=== PATIENT | female | born 1960 | race Caucasian/White ===

== ENCOUNTER 2019-06-18 08:56 | Emergency (ER) | payer OTHER ==
[~2019-06-18] VITALS: Ht 162.6 cm; Wt 95.3 kg
[~2019-06-18 08:56] MED LIST: METO25TA4 PO
[2019-06-18 09:00] VITALS: BP 147/75
--- NOTE | 2019-06-18 09:29 | PHYS DOC ---
Past Medical History Past Medical History: Other Additional Past Medical Histor: SINUS TACHYCARDIA, CENTRAL TREMORS (SOHAM DELGADO APRN) Past Surgical History: Hysterectomy, Other Additional Past Surgical Histo: DENTAL SURGERY (SOHAM DELGADO APRN) Alcohol Use: None Drug Use: None (SOHAM DELGADO APRN) Attending Signature I have participated in the care of this patient and I have reviewed and agree with all pertinent clinical information above including history, exam, and recommendations. (NIKHIL PLUMMER MD) Adult General Chief Complaint Chief Complaint: FOOT INJURY PAIN HPI HPI Patient is a 59 year old female patient with history of tachycardia who presents to the ED today complaining of right ankle pain rated at 7 out of 10 described as throbbing and vomiting that began sometime last night. She states she accidentally slept in a recliner, she states she woke up in a rash and rolled her right ankle. Patient describes the pain as throbbing and intermittent. She states the pain is worse on weight-bearing and radiates to the foot. (SOHAM DELGADO APRN) Review of Systems Review of Systems Constitutional: Denies fever or chills [] Musculoskeletal: Reports right ankle pain Integument: Denies rash or skin lesions [] Neurologic: Denies headache, focal weakness or sensory changes [] All other systems were reviewed and found to be within normal limits, except as documented in this note. (SOHAM DELGADO APRN) Allergies Allergies Allergies Coded Allergies Type Severity Reaction Last Updated Verified Penicillins Allergy Intermediate Anaphylaxis 10/11/13 Yes cefaclor Allergy Mild RASH 02/14/14 Yes (NIKHIL PLUMMER MD) Physical Exam Physical Exam Constitutional: Well developed, well nourished, no acute distress, non-toxic denise earance. [] Skin: Warm, dry, no erythema, no rash. [] Back: No tenderness, no CVA tenderness. [] Extremities: Right ankle with no obvious deformity, mild soft tissue swelling noted on the right lateral ankle. Tenderness on palpation of the right lateral ankle. No navicular bone tenderness, no tenderness of the base of the fifth metatarsal some tenderness noted on top of the right second through fourth metatarsals. Limited range of motion to the right ankle pain.+2 right pedal pulse. Full range of motion to the right toes. Neurologic: Alert and oriented X 3, normal motor function, normal sensory function, no focal deficits noted. [] Psychologic: Affect normal, judgement normal, mood normal. [] (SOHAM DELGADO APRN) Current Patient Data Vital Signs Vital Signs Date Time Temp Pulse Resp B/P (MAP) Pulse Ox O2 Delivery O2 Flow Rate FiO2 06/18/19 09:00 97.4 79 16 147/75 (99) 97 Room Air 97.4 (NIKHIL PLUMMER MD) EKG EKG [] (SOHAM DELGADO APRN) Radiology/Procedures Radiology/Procedures []PROCEDURE: ANKLE RIGHT 3V ANKLE RIGHT 3V, FOOT RIGHT 3V History: Rolled right ankle, lateral pain and swelling Comparison: None. Findings: Right foot: 3 views the right foot are submitted. Better seen on the left ankle radiographs, there is a small avulsed bone fragment at the lateral margin of the calcaneus. There are dorsal and plantar calcaneal enthesophytes. Right ankle: 3 views of the right ankle are submitted. There is soft tissue swelling. There is a small avulsed bone fragment at the lateral margin of the calcaneus. Impression: 1. There is a small avulsed bone fragment at the lateral margin of the calcaneus. Electronically signed by: Yao Manley MD (06/18/2019 9:49 AM) [facility] DICTATED and SIGNED BY: YAO MANLEY MD DATE: 06/18/19 0949 (SOHAM DELGADO APRN) Course & Med Decision Making Course & Med Decision Making Pertinent Labs and Imaging studies reviewed. (See chart for details) This is a 59-year-old female patient presenting to the ED today with right ankle pain that began last night after rolling her ankle, right foot and right ankle x-rays interpreted by radiologist were noted for a small avulsed bone fragment at the lateral margin of the calcaneus-patient denies any back pain. Patient was placed in right posterior leg splint-by the help desk technician, neurovascular exam is intact. Ice elevation encouraged. Follow-up with orthopedic doctor this week. (SOHAM DELGADO APRN) Dragon Disclaimer Dragon Disclaimer This electronic medical record was generated, in whole or in part, using a voice recognition dictation system. (SOHAM DELGADO APRN) Departure Departure Impression: Primary Impression: Avulsion fracture of calcaneus Disposition: 01 HOME, SELF-CARE Condition: STABLE Referrals: KAREL DOWNS MD (PCP) VIPUL OLIVEIRA MD follow up in the course of this week Patient Instructions: Calcaneal Fracture Additional Instructions: You were evaluated in the emergency room and noted to have calcaneus fracture. Try to ice and elevate the affected extremity, contact the provided orthopedic doctor tomorrow and set up a follow-up appointment. Problem Qualifiers Primary Impression: Avulsion fracture of calcaneus Encounter type: initial encounter Calcaneus location: tuberosity Fracture type: closed Fracture alignment: nondisplaced Laterality: right Quali fied Codes: S92.034A - Nondisplaced avulsion fracture of tuberosity of right calcaneus, initial encounter for closed fracture SOHAM DELGADO APRN Jun 18, 2019 09:29 NIKHIL PLUMMER MD Jun 18, 2019 17:16
--- NOTE | 2019-06-18 09:53 | RAD ---
ANKLE RIGHT 3V, FOOT RIGHT 3V History: Rolled right ankle, lateral pain and swelling Comparison: None. Findings: Right foot: 3 views the right foot are submitted. Better seen on the left ankle radiographs, there is a small avulsed bone fragment at the lateral margin of the calcaneus. There are dorsal and plantar calcaneal enthesophytes. Right ankle: 3 views of the right ankle are submitted. There is soft tissue swelling. There is a small avulsed bone fragment at the lateral margin of the calcaneus. Impression: 1. There is a small avulsed bone fragment at the lateral margin of the calcaneus. Electronically signed by: Rolando Zurita MD (06/18/2019 9:49 AM) [facility]
== END 2019-06-18 10:20 | disposition home or self-care (01) ==
LOC: ER 08:56
DX: S92.034A Nondisplaced avulsion fracture of tuberosity of right calcaneus, initial encounter for closed fracture (principal); R00.0 Tachycardia, unspecified; R11.10 Vomiting, unspecified; Z90.710 Acquired absence of both cervix and uterus; Z88.0 Allergy status to penicillin; Z88.1 Allergy status to other antibiotic agents; X50.1XXA Overexertion from prolonged static or awkward postures, initial encounter; Y93.89 Activity, other specified; Y92.89 Other specified places as the place of occurrence of the external cause; Y99.8 Other external cause status
CPT/HCPCS: 29515; 73610; 73630; 99284

== ENCOUNTER 2019-07-06 16:57 | Emergency (ER) | payer OTHER ==
[~2019-07-06] VITALS: Ht 162.6 cm; Wt 95.3 kg
[2019-07-06 17:17] VITALS: BP 181/86
--- NOTE | 2019-07-06 17:40 | PHYS DOC ---
Text Text Left elbow/wrist studies reviewed. No obvious displaced fracture on preliminary ED evaluation. Recommendations are for supportive care with PCP follow-up. Return precautions reviewed. General Chief Complaint: WRIST PAIN Stated Complaint: LEFT WRIST INJURY Time Seen by MD: 17:12 Source: patient Exam Limitations: no limitations History of Present Illness Initial Comments Additional is a 59-year-old right-handed female who presents with left elbow/forearm injury. Patient states she lost balance this morning and fell forward striking her left arm on a metal bar as she fell. Patient reports proximal and distal forearm pain and pain with range of motion. Injury occurred several hours prior to ED arrival. No other injury or pain complaints. Onset: this morning Pain/Injury Location: left forearm, left wrist Method of Injury: direct blow, fell Modifying Factors: improves with movement Allergies: Coded Allergies: Penicillins (Verified Allergy, Intermediate, Anaphylaxis, 10/11/13) cefaclor (Verified Allergy, Mild, RASH, 02/14/14) Past Medical History Medical History: no pertinent history Review of Systems Constitutional: no symptoms reported EENTM: no symptoms reported Cardiovascular: no symptoms reported Gastrointestinal: no symptoms reported Genitourinary: no symptoms reported Musculoskeletal: see HPI Skin: no symptoms reported Psychiatric/Neurological: no symptoms reported All Other Systems: Reviewed and Negative Physical Exam General Appearance: moderate distress HEENT: PERRL/EOMI, normal ENT inspection Neck: full range of motion Back: normal inspection Shoulder: normal inspection Elbow/Forearm: pain, soft tissue tenderness, swelling (proximal and distal soft tissue tenderness to palpation no gross deformity, bruising or abrasions.) Wrist: soft tissue tenderness (proximal wrist soft tissue tenderness to palpation, no gross deformities or bony tenderness.) Hand: normal inspection Neurologic/Tendon: normal sensation, normal motor functions, normal tendon functions Psychiatric: alert, oriented x 3 Skin: normal color JENNIFER COLLINS DO Jul 06, 2019 17:40
[2019-07-06] MEDS ORDERED: TRAM50TA PO (17:44)
--- NOTE | 2019-07-06 17:49 | RAD ---
Exam: Left wrist 3 views. Left elbow 3 views INDICATION: Fall TECHNIQUE: Frontal, lateral and oblique views of the left wrist and left elbow Comparisons: None FINDINGS: Left wrist: Bone mineralization is normal. No acute or healed fractures. Soft tissues are unremarkable. Joint spaces are well-maintained. Left elbow: Bone mineralization is normal. No acute or healed fractures. Soft tissues are unremarkable. Joint spaces are well-maintained. IMPRESSION: 1. No acute osseous abnormality of the left wrist. If the patient is having snuffbox tenderness recommend splinting with repeat imaging to rule out an occult scaphoid injury. 2. No acute osseous abnormality of the left elbow. Electronically signed by: Genia Rivera MD (07/06/2019 5:46 PM) [facility]
== END 2019-07-06 17:54 | disposition home or self-care (01) ==
LOC: ER 16:57
DX: M25.532 Pain in left wrist (principal); M79.632 Pain in left forearm; G89.11 Acute pain due to trauma; Z88.0 Allergy status to penicillin; Z88.8 Allergy status to other drugs, medicaments and biological substances; W18.09XA Striking against other object with subsequent fall, initial encounter; Y93.89 Activity, other specified; Y92.89 Other specified places as the place of occurrence of the external cause; Y99.8 Other external cause status
CPT/HCPCS: 73080; 73110; 99284

== ENCOUNTER 2019-12-23 18:29 | Emergency (ER) | payer OTHER ==
[~2019-12-23] VITALS: Ht 165.1 cm; Wt 91.0 kg
[~2019-12-23 18:29] MED LIST changes: +TRAM50TA PO
--- NOTE | 2019-12-23 19:09 | EKG ---
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
[2019-12-23 19:10] LABS: BASO # 0.1 x10^3/uL (0.0-0.2); BASO % 1 % (0-3); EOS % 0 % (0-3); HEMATOCRIT 42.4 % (36.0-47.0); HEMOGLOBIN 14.3 g/dL (12.0-15.5); LYMPH % 24 % (24-48); MEAN CORPUSCULAR HEMOGLOBIN 29 pg (25-35); MEAN CORPUSCULAR HGB CONC 34 g/dL (31-37); MEAN CORPUSCULAR VOLUME 86 fL (79-100); MONO # 0.6 x10^3/uL (0.0-1.1); MONO % 8 % (0-9); NEUT # 5.5 x10^3/uL (1.8-7.7); NEUT % 67 % (31-73); PLATELET COUNT 258 x10^3/uL (140-400); RED BLOOD COUNT 4.94 x10^6/uL (3.50-5.40); RED CELL DISTRIBUTION WIDTH 13.3 % (11.5-14.5); WHITE BLOOD COUNT 8.2 x10^3/uL (4.0-11.0)
[2019-12-23] MEDS ORDERED: diazePAM 5 MG TABLET PO ONE (19:15)
[2019-12-23 19:19] LABS: CALCIUM 9.4 mg/dL (8.5-10.1); CREATININE 0.9 mg/dL (0.6-1.0); GFR 63.7; POTASSIUM 3.9 mmol/L (3.5-5.1)
--- NOTE | 2019-12-23 19:19 | PHYS DOC ---
Past Medical History Past Medical History: Anxiety, Other Additional Past Medical Histor: SINUS TACHYCARDIA, CENTRAL TREMORS Past Surgical History: Hysterectomy, Other Additional Past Surgical Histo: DENTAL SURGERY Smoking Status: Never Smoker Alcohol Use: None Drug Use: None General Adult EDM: Chief Complaint: ANXIETY/PANIC ATTACK HPI: HPI: Patient is a 59 year old female who reports to the emergency department with complaints of anxiety and a rapid heart rate for the last week. Patient states she has been waking up from her sleep feeling like her heart is racing. After 5 to 10 minutes her heart rate will go back down to normal. She currently denies any chest pain, diaphoresis, shortness of breath, cough, wheezing, fever, headache, nausea, vomiting, diarrhea, abdominal pain, or myalgias. The patient denies any known exposure to anyone with COVID-19. She states she has been extremely worried about the virus. Patient states she has not been outside of her home in the last 30 days, only her has been bringing things back in the home. Patient states that she has been diligently cleaning anything that her brings into the home and has been maintaining social distance from her . She currently denies any pain. Review of Systems: Review of Systems: Constitutional: Denies fever or chills. [] Eyes: Denies change in visual acuity. [] HENT: Denies nasal congestion or sore throat. [] Respiratory: Denies cough or shortness of breath. [] Cardiovascular: Denies chest pain or edema; see HPI. [] GI: Denies abdominal pain, nausea, vomiting, or diarrhea. [] : Denies dysuria. [] Musculoskeletal: Denies back pain or joint pain. [] Integument: Denies rash. [] Neurologic: Denies headache, focal weakness or sensory changes. [] Endocrine: Denies polyuria or polydipsia. [] Lymphatic: Denies swollen glands. [] Psychiatric: Denies depression; see HPI Heart Score: HEART Score for Chest Pain: HEART Score for Chest Pain Response (Comments) Value History Slighlty/Non-Suspicious 0 ECG Normal 0 Age >45 - < 65 1 Risk Factors 1 or 2 Risk Factors 1 Troponin < Normal Limit 0 Total 2 Risk Factors: Risk Factors: DM, Current or recent (<one month) smoker, HTN, HLP, family history of CAD, obesity. Risk Scores: Score 0 - 3: 2.5% MACE over next 6 weeks - Discharge Home Score 4 - 6: 20.3% MACE over next 6 weeks - Admit for Clinical Observation Score 7 - 10: 72.7% MACE over next 6 weeks - Early Invasive Strategies Current Medications: Current Medications Medications (Trade) Dose Ordered Sig/[place] Start Time Stop Time Status Last Admin Dose Admin Diazepam (Valium) 5 mg 1X ONCE 12/23/19 19:15 12/23/19 19:16 Allergies: Allergies: Allergies Coded Allergies Type Severity Reaction Last Updated Verified Penicillins Allergy Intermediate Anaphylaxis 10/11/13 Yes cefaclor Allergy Intermediate RASH 12/23/19 Yes Physical Exam: PE: Constitutional: Well developed, well nourished, moderate distress, non-toxic appearance. [] HENT: Normocephalic, atraumatic, bilateral external ears normal, nose normal. [] Eyes: PERRLA, EOMI, conjunctiva normal, no discharge. [] Neck: Normal range of motion, no stridor. [] Cardiovascular:Heart rate irregular rhythm, no murmur [] Lungs & Thorax: Bilateral breath sounds clear to auscultation, Respirations even and unlabored, no retractions, no respiratory distress [] Abdomen: soft, no tenderness, no masses, no pulsatile masses. [] Skin: Warm, dry, no erythema, no rash. [] Back: No tenderness Extremities: No cyanosis, no clubbing, ROM intact, no edema. [] Neurologic: Alert and oriented X 3, no focal deficits noted. [] Psychologic: Affect worried, judgement normal, mood anxious Current Patient Data: Vital Signs: Vital Signs Date Time Temp Pulse Resp B/P (MAP) Pulse Ox O2 Delivery O2 Flow Rate FiO2 12/23/19 18:38 97.8 96 14 165/72 (103) 100 Room Air 97.8 EKG: EK-sinus rhythm with left atrial abnormality, rate of 98, no STEMI, read by Dr. Kelley [] Radiology/Procedures: Radiology/Procedures: PROCEDURE: CHEST AP ONLY Exam: Chest one view INDICATION: Rapid heart rate TECHNIQUE: Frontal view of the chest Comparisons: None FINDINGS: The cardiomediastinal silhouette and pulmonary vessels are within normal limits. The lung and pleural spaces are clear. IMPRESSION: No acute cardiopulmonary process.[] Course & Med Decision Making: Course & Med Decision Making Pertinent Labs and Imaging studies reviewed. (See chart for details) Patient is a 59-year-old female who presented to the emergency room with complaints of having palpitations and rapid heart rate with anxiety for the last week. Her EKG revealed no acute findings. CBC was unremarkable, CMP was also unremarkable. PT, INR were within normal limits, d-dimer was not elevated. Low suspicion for PE. Cardiac enzymes were within normal limits, patient's heart score is a 2, low suspicion for ACS. I offered to give the patient 5 mg of p.o. Valium to help with anxiety. The patient declined this medication. Her vital signs are stable throughout the visit, the patient reported feeling better. I encouraged the patient to continue to social distance and to frequently wash her hands and avoid touching her face in order to avoid transmission of COVID-19. The patient was encouraged to follow-up with her primary care doctor if her anxiety continued, return to the ER if chest pain worsened or she develops shortness of breath. Patient verbalized an understanding of home care, medications, follow-up, and return to ED instructions and was in agreement with the plan of care. [] Dragon Disclaimer: Dragon Disclaimer: This electronic medical record was generated, in whole or in part, using a voice recognition dictation system. Departure Departure Impression: Primary Impression: Anxiety Disposition: 01 HOME, SELF-CARE Condition: STABLE Referrals: KAREL DOWNS MD (PCP) Patient Instructions: Anxiety and Panic Attacks, [id number] Additional Instructions: Continue to socially distance and frequently wash your hands, also avoid touching your face to prevent COVID-19. Follow-up with your primary care doctor for further evaluation and treatment of your anxiety. Return to the ER if your symptoms worsen or he develops shortness of breath. MACARENA CHACON CRM DYNAMICS DEVELOPER Dec 23, 2019 19:19
[2019-12-23 19:20] LABS: PARTIAL THROMBOPLASTIN TIME 26 SEC (24-38); PROTHROMBIN TIME PATIENT 12.7 SEC (11.7-14.0)
[2019-12-23 19:24] LABS: D-DIMER < 0.27 ug/mlFEU (0.00-0.50)
[2019-12-23 19:26] LABS: ALBUMIN 3.8 g/dL (3.4-5.0); ALBUMIN/GLOBULIN RATIO 0.9 (1.0-1.7); MAGNESIUM 1.9 mg/dL (1.8-2.4); TOTAL BILIRUBIN 0.4 mg/dL (0.2-1.0); TOTAL PROTEIN 8.2 g/dL (6.4-8.2)
[2019-12-23 19:36] LABS: BILIRUBIN,URINE NEGATIVE (NEG); CLARITY,URINE CLOUDY; COLOR,URINE YELLOW; NITRITE,URINE NEGATIVE (NEG); PH,URINE 5.5 (<5.0-8.0); PROTEIN,URINE NEGATIVE (NEG-TRACE); UROBILINOGEN,URINE 0.2 mg/dL (0.2 mg/dL)
[2019-12-23 19:42] LABS: SQUAMOUS EPITHELIAL CELL,UR MOD /LPF
[2019-12-23 19:43] LABS: BACTERIA,URINE FEW /HPF (0-FEW); RBC,URINE 0 /HPF (0-2)
--- NOTE | 2019-12-23 19:48 | RAD ---
Exam: Chest one view INDICATION: Rapid heart rate TECHNIQUE: Frontal view of the chest Comparisons: None FINDINGS: The cardiomediastinal silhouette and pulmonary vessels are within normal limits. The lung and pleural spaces are clear. IMPRESSION: No acute cardiopulmonary process. Electronically signed by: Genia Rivera MD (12/23/2019 7:45 PM) [id number]
[2019-12-23 20:35] VITALS: BP 166/70
== END 2019-12-23 20:55 | disposition home or self-care (01) ==
LOC: ER 18:29
DX: F41.9 Anxiety disorder, unspecified (principal); R00.2 Palpitations; Z88.0 Allergy status to penicillin; Z88.8 Allergy status to other drugs, medicaments and biological substances
CPT/HCPCS: 36415; 71045; 80053; 81001; 82553; 83605; 83690; 83735; 84484; 85025; 85379; 85610; 85730; 93005; 99285-25

== ENCOUNTER 2019-12-26 18:40 | Emergency (ER) | payer OTHER ==
[~2019-12-26] VITALS: Ht 162.6 cm; Wt 100.0 kg
[2019-12-26] MEDS ORDERED: IV NORMAL SALINE 1000ML BAG 1,000 ML IV SCH (18:57)
[2019-12-26] MEDS ORDERED: ASPIRIN CHEWABLE 81 MG TABLET. PO ONE (19:00)
[2019-12-26 19:19] LABS: BASO # 0.1 x10^3/uL (0.0-0.2); BASO % 1 % (0-3); EOS # 0.1 x10^3/uL (0.0-0.7); EOS % 1 % (0-3); HEMATOCRIT 41.9 % (36.0-47.0); HEMOGLOBIN 14.3 g/dL (12.0-15.5); LYMPH # 2.8 x10^3/uL (1.0-4.8); LYMPH % 31 % (24-48); MEAN CORPUSCULAR HEMOGLOBIN 29 pg (25-35); MEAN CORPUSCULAR HGB CONC 34 g/dL (31-37); MEAN CORPUSCULAR VOLUME 85 fL (79-100); MONO # 0.7 x10^3/uL (0.0-1.1); MONO % 8 % (0-9); NEUT # 5.5 x10^3/uL (1.8-7.7); NEUT % 60 % (31-73); PLATELET COUNT 277 x10^3/uL (140-400); RED BLOOD COUNT 4.92 x10^6/uL (3.50-5.40); RED CELL DISTRIBUTION WIDTH 13.8 % (11.5-14.5); WHITE BLOOD COUNT 9.1 x10^3/uL (4.0-11.0)
[2019-12-26 19:28] LABS: CALCIUM 9.4 mg/dL (8.5-10.1); CREATININE 0.7 mg/dL (0.6-1.0); GFR 85.1; POTASSIUM 3.3 mmol/L (3.5-5.1)
--- NOTE | 2019-12-26 19:31 | RAD ---
PORTABLE CHEST 1V History: Chest discomfort Comparison: December 23, 2019 Findings: Single view of the chest is submitted. There is no infiltrate, pneumothorax, or effusion. The pericardial cardiac silhouette is within normal limits in size. Impression: 1. There is no radiographic evidence of acute cardiopulmonary disease. Electronically signed by: Rolando Zurita MD (12/26/2019 7:29 PM) [facility]
[2019-12-26 19:34] LABS: ALBUMIN 3.8 g/dL (3.4-5.0); ALBUMIN/GLOBULIN RATIO 0.9 (1.0-1.7); MAGNESIUM 1.9 mg/dL (1.8-2.4); TOTAL BILIRUBIN 0.5 mg/dL (0.2-1.0)
--- NOTE | 2019-12-26 20:11 | PHYS DOC ---
Past Medical History Past Medical History: Anxiety, Other Additional Past Medical Histor: SINUS TACHYCARDIA, CENTRAL TREMORS Past Surgical History: Hysterectomy, Other Additional Past Surgical Histo: DENTAL SURGERY Smoking Status: Never Smoker Alcohol Use: None Drug Use: None General Adult EDM: Chief Complaint: RAPID HEART RATE HPI: HPI: Patient is a 59 year old female who presents with complaint of rapid heart rate that started approximately 20 minutes prior to arrival. She denies any chest pain or shortness of breath. She states that she is just having some lightheadedness. She states that she had checked her heart rate on pulse ox and it was in the 140s at home. She states that she has a history of this and had a few episodes last night but it spontaneously resolved. She states that she came in today because her heart rate was not going down on its own.[] Review of Systems: Review of Systems: Constitutional: Denies fever or chills. [] Respiratory: Denies cough or shortness of breath. [] Cardiovascular: Denies chest pain or edema. Complains of palpitations. [] GI: Denies abdominal pain, nausea, vomiting. [] Neurologic: Denies headache, focal weakness or sensory changes. [] A full 10 point review of systems has been reviewed and is otherwise negative. Heart Score: Risk Factors: Risk Factors: DM, Current or recent (<one month) smoker, HTN, HLP, family history of CAD, obesity. Risk Scores: Score 0 - 3: 2.5% MACE over next 6 weeks - Discharge Home Score 4 - 6: 20.3% MACE over next 6 weeks - Admit for Clinical Observation Score 7 - 10: 72.7% MACE over next 6 weeks - Early Invasive Strategies Current Medications: Current Medications Medications (Trade) Dose Ordered Sig/[facility] Start Time Stop Time Status Last Admin Dose Admin Aspirin (Aspirin Chewable) 324 mg 1X ONCE 12/26/19 19:00 12/26/19 19:01 DC Sodium Chloride 1,000 ml @ 1,000 mls/hr Q1H 12/26/19 18:57 12/26/19 19:56 DC Allergies: Allergies: Allergies Coded Allergies Type Severity Reaction Last Updated Verified Penicillins Allergy Intermediate Anaphylaxis 10/11/13 Yes cefaclor Allergy Intermediate RASH 12/23/19 Yes Physical Exam: PE: Constitutional: Well developed, well nourished, no acute distress, non-toxic appearance. [] HENT: Normocephalic, atraumatic, bilateral external ears normal, oropharynx moist, no oral exudates, nose normal. [] Eyes: PERRLA, EOMI, conjunctiva normal, no discharge. [] Neck: Normal range of motion, no tenderness, supple, no stridor. [] Cardiovascular: Tachycardic rate with regular rhythm[] Lungs & Thorax: Bilateral breath sounds clear to auscultation [] Abdomen: Bowel sounds normal, soft, no tenderness. [] Skin: Warm, dry, no erythema, no rash. [] Extremities: No tenderness, no cyanosis, no clubbing, ROM intact, no edema. [] Neurologic: Alert and oriented X 3, no focal deficits noted. [] Current Patient Data: Labs: Laboratory Tests Test 12/26/19 19:12 White Blood Count 9.1 x10^3/uL (4.0-11.0) Red Blood Count 4.92 x10^6/uL (3.50-5.40) Hemoglobin 14.3 g/dL (12.0-15.5) Hematocrit 41.9 % (36.0-47.0) Mean Corpuscular Volume 85 fL (79-100) Mean Corpuscular Hemoglobin 29 pg (25-35) Mean Corpuscular Hemoglobin Concent 34 g/dL (31-37) Red Cell Distribution Width 13.8 % (11.5-14.5) Platelet Count 277 x10^3/uL (140-400) Neutrophils (%) (Auto) 60 % (31-73) Lymphocytes (%) (Auto) 31 % (24-48) Monocytes (%) (Auto) 8 % (0-9) Eosinophils (%) (Auto) 1 % (0-3) Basophils (%) (Auto) 1 % (0-3) Neutrophils # (Auto) 5.5 x10^3/uL (1.8-7.7) Lymphocytes # (Auto) 2.8 x10^3/uL (1.0-4.8) Monocytes # (Auto) 0.7 x10^3/uL (0.0-1.1) Eosinophils # (Auto) 0.1 x10^3/uL (0.0-0.7) Basophils # (Auto) 0.1 x10^3/uL (0.0-0.2) D-Dimer ([place]) 0.31 ug/mlFEU (0.00-0.50) Sodium Level 139 mmol/L (136-145) Potassium Level 3.3 mmol/L (3.5-5.1) L Chloride Level 101 mmol/L (98-107) Carbon Dioxide Level 28 mmol/L (21-32) Anion Gap 10 (6-14) Blood Urea Nitrogen 9 mg/dL (7-20) Creatinine 0.7 mg/dL (0.6-1.0) Estimated GFR (Cockcroft-Gault) 85.1 BUN/Creatinine Ratio 13 (6-20) Glucose Level 132 mg/dL (70-99) H Calcium Level 9.4 mg/dL (8.5-10.1) Magnesium Level 1.9 mg/dL (1.8-2.4) Total Bilirubin 0.5 mg/dL (0.2-1.0) Aspartate Amino Transferase (AST) 17 U/L (15-37) Alanine Aminotransferase (ALT) 32 U/L (14-59) Alkaline Phosphatase 74 U/L (46-116) Troponin I Quantitative < 0.017 ng/mL (0.000-0.055) QN-Xij-Z-Type Natriuretic Peptide 15 pg/mL (0-124) Total Protein 8.0 g/dL (6.4-8.2) Albumin 3.8 g/dL (3.4-5.0) Albumin/Globulin Ratio 0.9 (1.0-1.7) L Lipase 151 U/L (73-393) Laboratory Tests 12/26/19 19:12 Laboratory Tests 12/26/19 19:12 Vital Signs: Vital Signs Date Time Temp Pulse Resp B/P (MAP) Pulse Ox O2 Delivery O2 Flow Rate FiO2 12/26/19 18:50 98.1 128 20 198/93 (128) 98 Room Air 98.1 EKG: EKG: [] Radiology/Procedures: Radiology/Procedures: [] Impression: PROCEDURE: PORTABLE CHEST 1V PORTABLE CHEST 1V History: Chest discomfort Comparison: December 23, 2019 Findings: Single view of the chest is submitted. There is no infiltrate, pneumothorax, or effusion. The pericardial cardiac silhouette is within normal limits in size. Impression: 1. There is no radiographic evidence of acute cardiopulmonary disease. Electronically signed by: Rolando Zurita MD (12/26/2019 7:29 PM) [facility] Course & Med Decision Making: Course & Med Decision Making Pertinent Labs and Imaging studies reviewed. (See chart for details) [] Dragon Disclaimer: Dragon Disclaimer: This electronic medical record was generated, in whole or in part, using a voice recognition dictation system. Departure Departure Impression: Primary Impression: Sinus tachycardia Disposition: 01 HOME, SELF-CARE Condition: STABLE Referrals: KAREL DOWNS MD (PCP) Patient Instructions: Nonspecific Tachycardia ESPERANZA TAVERA Jr. DO Dec 26, 2019 20:11
[2019-12-26] MEDS ORDERED: METOPROLOL TARTRATE 5 MG/5 ML VIAL. IVP ONE (21:30)
[2019-12-26 21:42] LABS: BILIRUBIN,URINE NEGATIVE (NEG); CLARITY,URINE CLEAR; COLOR,URINE YELLOW; NITRITE,URINE NEGATIVE (NEG); PH,URINE 5.5 (<5.0-8.0); PROTEIN,URINE NEGATIVE (NEG-TRACE); UROBILINOGEN,URINE 0.2 mg/dL (0.2 mg/dL)
[2019-12-26 21:46] LABS: SQUAMOUS EPITHELIAL CELL,UR MOD /LPF
[2019-12-26 21:47] LABS: BACTERIA,URINE FEW /HPF (0-FEW); RBC,URINE 0 /HPF (0-2)
[2019-12-26] MEDS ORDERED: POTASSIUM CHLORIDE 20 MEQ TABLET.ER. PO ONE (22:00)
[2019-12-26 22:21] VITALS: BP 168/70
--- NOTE | 2019-12-27 06:33 | EKG ---
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
== END 2019-12-26 22:25 | disposition home or self-care (01) ==
LOC: ER 18:40
DX: R00.0 Tachycardia, unspecified (principal); R42 Dizziness and giddiness; R00.2 Palpitations; F41.9 Anxiety disorder, unspecified; Z90.710 Acquired absence of both cervix and uterus; Z98.890 Other specified postprocedural states; Z88.0 Allergy status to penicillin; Z88.1 Allergy status to other antibiotic agents
CPT/HCPCS: 36415; 71045; 80053; 81001; 83690; 83735; 83880; 84484; 85025; 85379; 87086; 93005; 96360; 99285; J7030

== ENCOUNTER → 2020-03-14 | Outpatient (CLI) | payer OTHER ==
--- NOTE | 2020-03-18 10:18 | RAD ---
BILATERAL SCREENING MAMMOGRAM History: Routine screening. Comparison: 06/01/2007. Technique: Routine bilateral digital mammogram views were obtained. Findings: Breast Tissue Density B : There are scattered areas of fibroglandular density. There are no dominant masses, suspicious microcalcifications, or architectural distortion. IMPRESSION: No mammographic evidence of malignancy. Recommend routine screening. BI-RADS category 1: Negative. The images were reviewed with computer aided detection. Patient information is entered into the reminder system with a target due date for the next screening mammogram. Mammography is the most sensitive method for finding small breast cancers, but it does not detect them all and is not a substitute for careful clinical examination. A negative mammogram does not negate a clinically suspicious finding and should not result in delay in biopsying a clinically suspicious abnormality. "Our facility is accredited by the [employer] Mammography [employer]." Electronically signed by: Rylan Young MD (03/18/2020 10:15 AM) [id number]
== END | disposition home or self-care (01) ==
LOC: MAMMO 08:06
PROVIDERS: ATTEND Family Medicine
DX: Z12.31 Encounter for screening mammogram for malignant neoplasm of breast (principal)
CPT/HCPCS: 77067

== ENCOUNTER → 2021-05-27 | Outpatient (CLI) | payer OTHER ==
[2021-05-27 07:56] LABS: HEMATOCRIT 40.5 % (36.0-47.0); HEMOGLOBIN 13.4 g/dL (12.0-15.5); RED BLOOD COUNT 4.56 x10^6/uL (3.50-5.40); RED CELL DISTRIBUTION WIDTH 14.3 % (11.5-14.5); WHITE BLOOD COUNT 4.6 x10^3/uL (4.0-11.0)
[2021-05-27 08:16] LABS: CALCIUM 9.6 mg/dL (8.5-10.1); CREATININE 0.7 mg/dL (0.6-1.0); GFR 84.5; POTASSIUM 3.9 mmol/L (3.5-5.1); TOTAL BILIRUBIN 0.5 mg/dL (0.2-1.0); TOTAL PROTEIN 8.1 g/dL (6.4-8.2)
[2021-05-27 08:17] LABS: CHOLESTEROL/HDL RATIO 1.9
== END ==
LOC: LAB 07:31
PROVIDERS: ATTEND Family Medicine
DX: R00.0 Tachycardia, unspecified (principal); Z01.419 Encounter for gynecological examination (general) (routine) without abnormal findings
CPT/HCPCS: 36415; 80053; 80061; 82306; 84436; 84443; 85027

== ENCOUNTER → 2021-06-09 | Outpatient (CLI) | payer OTHER ==
--- NOTE | 2021-06-09 14:25 | RAD ---
EXAM: Bilateral screening mammogram. HISTORY: 61-year-old female presents for screening mammography. TECHNIQUE: Full-field digital craniocaudal and mediolateral oblique views of both breasts are obtaine d for evaluation. Computer aided detection was applied. COMPARISON: 03/14/2020 BREAST PARENCHYMAL DENSITY: Level B - Scattered fibroglandular densities. FINDINGS: There is no new suspicious mass, microcalcification or region of architectural distortion. IMPRESSION: BI-RADS Category 1: Negative. RECOMMENDATION: Annual mammography is recommended. If your mammogram demonstrates that you have dense breast tissue, which could hide abnormalities, and if you have other risk factors for breast cancer that have been identified, you might benefit from s upplemental screening tests that may be suggested by your ordering physician. Dense breast tissue, i n and of itself, is a relatively common condition. This information is not provided to cause undue c oncern, but rather to raise your awareness and to promote discussion with your physician regarding th e presence of other risk factors, in addition to dense breast tissue. A report of your mammography re sults will be sent to you and your physician. You should contact your physician if you have any ques tions or concerns regarding this report. Mammography is a sensitive method for finding small breast cancers, but it does not detect them all a nd is not a substitute for careful clinical examination. A negative mammogram does not negate a clin ically suspicious finding and should not result in delay in biopsying a clinically suspicious abnorma lity. PQRS compliance statement - Patient information was entered into a reminder system with a target due date for the next mammogram. "Our facility is accredited by the [employer]amm[employer]." Electronically signed by: Diandra Farmer MD (06/09/2021 2:23 PM) [id number]
== END ==
LOC: MAMMO 13:01
PROVIDERS: ATTEND Family Medicine
DX: Z12.31 Encounter for screening mammogram for malignant neoplasm of breast (principal)
CPT/HCPCS: 77067